=== PATIENT | female | born 1970 | race Caucasian/White ===

== ENCOUNTER 2021-04-01 23:34 | Emergency (ER) | payer BC ==
--- NOTE | 2021-04-02 00:53 | EDM.PDOC ---
ED HPI GENERAL MEDICAL PROBLEM - General Chief Complaint: Lower Extremity Injury/Pain Stated Complaint: R FOOT/ANKLE INJURY Time Seen by Provider: 04/02/21 00:32 - History of Present Illness INITIAL COMMENTS - FREE TEXT/NARRATIVE: Patient arrived to ED via private vehicle Injury occurred about 1800 this evening She was walking and stepped on an uneven surface, resulting in a fall She struck the left hand and left knee, and twisted the right knee but has no significant concern for those She sustained an inversion type injury to the right foot and ankle Pain is most pronounced in the right foot, outer aspect She has been walking with great difficulty, using a walking stick for support She has been taking acetaminophen for pain Review of Systems Cardiovascular - no chest pain Respiratory - no shortness of breath Gastrointestinal - no abdominal pain Genitourinary - no dysuria Musculoskeletal - right foot/ankle injury; mild bilateral knee pain Neurological - no headache; no speech disturbance; no weakness; gait disturbance due to injury Right Foot Pain Score (Numeric/FACES): 5 - Related Data Allergies Allergy/AdvReac Type Severity Reaction Status Date / Time acetaminophen [From Percocet] Allergy Confusion Verified 04/02/21 00:03 codeine Allergy Confusion Verified 04/02/21 00:03 [From Tylenol-Codeine] oxycodone [From Percocet] Allergy Confusion Verified 04/02/21 00:03 Home Meds: Home Meds Aspirin 81 mg PO DAILY 04/02/21 [History] Cholecalciferol (Vitamin D3) [Vitamin D3] 1,000 unit PO DAILY 04/02/21 [History] Dulaglutide [Trulicity] 20 unit SQ DAILY 04/02/21 [History] Glimepiride 2 mg PO BID 04/02/21 [History] Lisinopril/Hydrochlorothiazide [Lisinopril-Hctz 20-25 mg Tab] 1 tab PO BID 04/02/21 [History] amLODIPine [Norvasc] 5 mg PO DAILY 04/02/21 [History] atenoloL [Atenolol] 50 mg PO BID 04/02/21 [History] atorvaSTATin [Lipitor] 40 mg PO DAILY 04/02/21 [History] metFORMIN [Glucophage XR] 1,000 mg PO BID 04/02/21 [History] Past Medical History Cardiovascular History: Reports: High Cholesterol, Hypertension Endocrine/Metabolic History: Reports: Diabetes, Type II - Past Surgical History Female Surgical History: Reports: Hysterectomy Musculoskeletal Surgical History: Reports: Knee Replacement Social & Family History - Family History Family Medical History: No Pertinent Family History - Tobacco Use Tobacco Use Status *Q: Current Every Day Tobacco User Years of Tobacco use: 30 Packs/Tins Daily: 1 - Caffeine Use Caffeine Use: Reports: Coffee - Recreational Drug Use Recreational Drug Use: No Review of Systems - Review of Systems Review Of Systems: See Below (See HPI section) ED EXAM, GENERAL - Physical Exam Exam: See Below Free Text/Narrative:: Constitutional - awake; alert; no acute distress Head - no facial swelling or weakness Eyes - extra ocular motion intact; conjunctiva normal ENT - no nasal deformity; no epistaxis; normal phonation Neck - no swelling Respiratory - normal respiratory effort Cardiovascular - regular rhythm; normal rate Musculoskeletal; - Right lower extremity: Mild to moderate swelling about lateral malleolus with diffuse tenderness on palpation; tenderness on palpation lateral aspect of foot; no medial ankle or foot tenderness; no fibular head tenderness; functional range of motion at knee - Other extremities: Grossly normal strength and motion; no swelling or deformity Skin - warm; dry Neurologic - normal speech; no weakness Psychiatric - normal mood and affect; memory and attention normal Course - Vital Signs Text/Narrative:: . Considered etiologies included: sprain, strain, contusion, fracture Symptoms and examination were discussed Radiography was obtained for investigation There were no findings for acute osseous injury Clinical features were consistent with ankle sprain and foot contusion Symptomatic treatment was reviewed Ankle splint and crutches were provided Primary care follow-up was advised Patient was felt to be stable for outpatient follow-up Return precautions were provided Last Recorded V/S: Last Vital Signs Temp 36.2 C 04/02/21 00:00 Pulse 86 04/02/21 00:00 Resp 18 04/02/21 00:00 BP 172/81 H 04/02/21 00:00 Pulse Ox 97 04/02/21 00:00 - Radiology Interpretation Free Text/Narrative:: XR right ankle, interpreted by chief writer: no fracture or dislocation XR right foot, interpreted by chief writer: no fracture or dislocation Departure - Departure Time of Disposition: 01:50 Disposition: Home, Self-Care 01 Clinical Impression: Sprain of right ankle, Contusion of foot, right - Discharge Information *PRESCRIPTION DRUG MONITORING PROGRAM REVIEWED*: No *COPY OF PRESCRIPTION DRUG MONITORING REPORT IN PATIENT RENATO: Not Applicable Instructions: Ankle Sprain, Contusion Referrals: PCP,None [Primary Care Provider] - Forms: ED Department Discharge Additional Instructions: Return if condition worsens May resume light activity and regular diet as tolerated May bear weight on the right foot as tolerated Use crutches as needed for assistance with walking Use ankle splint for 3 to 5 days, for support when walking Continue usual medications Follow-up with primary care and/or orthopedic provider is recommended in 5 to 7 days Sepsis Event Note (ED) - Evaluation Sepsis Screening Result: No Definite Risk
--- NOTE | 2021-04-02 06:26 | CR ---
Right foot: 3 views of the right foot were obtained. Comparison: No prior right foot study is available. Calcaneal spurs are noted as described on ankle exam performed on the same day. Small os navicularis is noted. Joint spaces are fairly well preserved within the foot. No discrete fracture or dislocation is noted. Impression: 1. Calcaneal spurs are again seen. 2. No definite acute abnormality is appreciated on the right foot exam. Diagnostic code #2
--- NOTE | 2021-04-02 06:26 | CR ---
Right ankle: 3 views of the right ankle were obtained. Comparison: No prior ankle study is available. Two plantar spurs are noted. Minimal spurring is noted at the attachment of the Achilles tendon to the calcaneus. Ankle mortise is symmetric. Mild soft tissue swelling is noted. Impression: 1. Soft tissue swelling. 2. Calcaneal spurs. 3. No acute bony abnormality is seen on right ankle exam. Diagnostic code #2
== END 2021-04-02 02:20 | disposition home or self-care (01) ==
LOC: JD.ED 23:34
DX: S93.401A Sprain of unspecified ligament of right ankle, initial encounter (principal); S90.31XA Contusion of right foot, initial encounter; E78.00 Pure hypercholesterolemia, unspecified; I10 Essential (primary) hypertension; E11.9 Type 2 diabetes mellitus without complications; Z88.5 Allergy status to narcotic agent; Z79.84 Long term (current) use of oral hypoglycemic drugs; Z79.899 Other long term (current) drug therapy; Z79.82 Long term (current) use of aspirin; Z72.0 Tobacco use; X50.1XXA Overexertion from prolonged static or awkward postures, initial encounter
CPT/HCPCS: 73610-26-RT; 73610-RT; 73630-26-RT; 73630-RT; 99283-25